=== PATIENT | male | born 1985 | race Hispanic/Latino ===

== ENCOUNTER 2020-12-10 00:05 | Emergency (ER) | payer SELFPAY ==
--- NOTE | 2020-12-10 00:50 | Event Note ---
ED Screening Note Date of service: 12/10/20 Time: 00:49 ED Screening Note: Patient here from [place] with chest pain Detoxing from meth for the past 2 days Dates pain started after he was seen at [place] earlier and had to shots of an unknown medication Denies shortness of breath This initial assessment/diagnostic orders/clinical plan/treatment(s) is/are subject to change based on patients health status, clinical progression and re- assessment by fellow clinical providers in the ED. Further treatment and workup at subsequent clinical providers discretion. Patient/guardian urged not to elope from the ED as their condition may be serious if not clinically assessed and managed. Initial orders include: Labs EKG Chest x-ray
[2020-12-10 01:14] LABS: Basophils # (Auto) 0.1 K/mm3 (0.0-0.1); Basophils % (Auto) 0.5 % (0.0-1.8); Eosinophils # (Auto) 0.2 K/mm3 (0.0-0.4); Eosinophils % (Auto) 1.8 % (0.0-4.3); Hematocrit 41.7 % (35.5-45.6); Hemoglobin 14.4 gm/dl (11.8-15.2); Lymphocytes # (Auto) 3.1 K/mm3 (1.2-5.4); Lymphocytes % (Auto) 31.2 % (13.4-35.0); Mean Corpuscular HGB Conc 35 % (32-34); Mean Corpuscular Volume 85 fl (84-94); Monocytes # (Auto) 0.8 K/mm3 (0.0-0.8); Platelet Count 278 K/mm3 (140-440); Red Blood Count 4.92 M/mm3 (3.65-5.03); Red Cell Distribution Width 15.5 % (13.2-15.2)
[2020-12-10 01:27] LABS: Alanine Aminotransferase 43 units/L (7-56); Albumin 4.7 g/dL (3.9-5); BUN/Creatinine Ratio 11; Blood Urea Nitrogen 10 mg/dL (9-20); Hemolysis Index 5
--- NOTE | 2020-12-10 01:41 | XRay Report ---
CHEST 1 VIEW 12/10/2020 12:59 AM INDICATION / CLINICAL INFORMATION: chest pain. COMPARISON: 02/22/2020. FINDINGS: SUPPORT DEVICES: None. HEART / MEDIASTINUM: No significant abnormality. LUNGS / PLEURA: No significant pulmonary or pleural abnormality. No pneumothorax. ADDITIONAL FINDINGS: No significant additional findings. IMPRESSION: No acute abnormality. Signer Name: John Grossman MD Signed: 12/10/2020 1:36 AM Workstation Name: [id number]
--- NOTE | 2020-12-10 02:56 | Emergency Department Report ---
ED Chest Pain HPI - General Chief Complaint: Chest Pain Stated Complaint: CHEST PAIN Time Seen by Provider: 12/10/20 02:47 Source: patient Mode of arrival: Wheelchair Limitations: No Limitations - History of Present Illness Initial Comments: Chief complaint: "I am paranoid and I'm seeing things." HPI: This is a 35-year-old male with history of polysubstance abuse including heroin and methamphetamine who presents on 1012 for suicidal ideation from [facility]. Patient had transient chest pain. He felt as if he was punched in the chest after receiving IM injection at outside hospital. He denies any chest pain at this time. He says that "I am seeing [s--]. I feel like you are trying to do something to me." MD Complaint: chest pain -: Sudden, This evening Onset: during rest Pain Location: substernal Severity: moderate Severity scale (0 -10): 0 Quality: other ([place] like a punch in the chest) Consistency: now resolved Improves With: nothing Worsens With: nothing Treatments Prior to Arrival: other (Patient was transferred from [facility] to [facility]) - Related Data Allergies Allergy/AdvReac Type Severity Reaction Status Date / Time No Known Allergies Allergy Verified 12/10/20 00:35 Heart Score - HEART Score History: Slightly suspicious EKG: Normal Age: < 45 Risk factors: No known risk factors Troponin: < normal limit HEART Score: 0 ED Review of Systems ROS: Stated complaint: CHEST PAIN Other details as noted in HPI Comment: All other systems reviewed and negative Constitutional: denies: fever, malaise Respiratory: denies: cough, shortness of breath Gastrointestinal: denies: abdominal pain, nausea, vomiting Psychiatric: anxiety, depression, auditory hallucinations ED Past Medical Hx - Past Medical History Previous Medical History?: Yes Hx Seizures: Yes Hx Psychiatric Treatment: Yes (substance abuse) - Surgical History Past Surgical History?: No - Social History Smoking Status: Current Every Day Smoker Substance Use Type: Heroin, Methamphetamines ED Physical Exam - General Limitations: No Limitations General appearance: alert, in no apparent distress, other (Appears restless, paranoid, attending to persons not in the room) - Head Head exam: Present: atraumatic, normocephalic - Eye Eye exam: Present: normal appearance - ENT ENT exam: Present: mucous membranes moist - Neck Neck exam: Present: normal inspection, full ROM - Respiratory Respiratory exam: Present: normal lung sounds bilaterally. Absent: respiratory distress, wheezes, rales, rhonchi - Cardiovascular Cardiovascular Exam: Present: regular rate, normal rhythm, normal heart sounds. Absent: systolic murmur, diastolic murmur, rubs, gallop - GI/Abdominal GI/Abdominal exam: Present: soft, normal bowel sounds. Absent: distended, tend erness, guarding, rebound - Rectal Rectal exam: Present: deferred - Extremities Exam Extremities exam: Present: normal inspection - Back Exam Back exam: Present: normal inspection - Neurological Exam Neurological exam: Present: alert, oriented X3 - Psychiatric Psychiatric exam: Present: agitated, anxious, other (Paranoid) - Skin Skin exam: Present: warm, dry, intact, normal color. Absent: rash ED Course Vital Signs 12/10/20 12/10/20 00:37 02:13 Temperature 98.1 F Pulse Rate 111 H Respiratory 18 18 Rate Blood Pressure 141/96 O2 Sat by Pulse 100 Oximetry ED Medical Decision Making - Lab Data Result diagrams: 12/10/20 00:52 12/10/20 00:52 Laboratory Results - last 24 hr 12/10/20 12/10/20 00:52 00:52 WBC 9.8 RBC 4.92 Hgb 14.4 Hct 41.7 MCV 85 MCH 29 MCHC 35 H RDW 15.5 H Plt Count 278 Lymph % (Auto) 31.2 Grant % (Auto) 8.0 H Eos % (Auto) 1.8 Baso % (Auto) 0.5 Lymph # (Auto) 3.1 Grant # (Auto) 0.8 Eos # (Auto) 0.2 Baso # (Auto) 0.1 Seg Neutrophils % 58.5 Seg Neutrophils # 5.7 Sodium 138 Potassium 4.2 Chloride 98.0 Carbon Dioxide 31 H Anion Gap 13 BUN 10 Creatinine 0.9 Estimated GFR > 60 BUN/Creatinine Ratio 11 Glucose 94 Calcium 10.0 Total Bilirubin 0.60 AST 38 ALT 43 Alkaline Phosphatase 76 Troponin T < 0.010 Total Protein 8.1 Albumin 4.7 Albumin/Globulin Ratio 1.4 - EKG Data -: EKG Interpreted by [facility] EKG shows normal: sinus rhythm, axis, intervals, QRS complexes, ST-T waves Rate: normal - EKG Data Interpretation: normal EKG 12/10/20 02:54 EKG obtained 45 EKG interpreted by me Normal sinus rhythm normal rate normal axis normal intervals no ST elevation no ST-T signs of ischemia normal EKG - Radiology Data Radiology results: report reviewed Chest radiograph no acute findings according to radiology impression - Medical Decision Making 1. Chest pain: I suspect his ectopy after receiving IM injection outside hospital. No evidence of emergent cause of chest pain such as pulmonary embolism, ACS, pneumothorax, pneumonia. Patient's work-up all normal including chest radiograph EKG troponin CBC chemistry 2. Drug-induced psychosis with suicidal ideation: Patient is currently on involuntary hold. He is being treated at [facility]. Sitter is at the bedside. Patient will be transported back to [facility]. Critical care attestation.: If time is entered above; I have spent that time in minutes in the direct care of this critically ill patient, excluding procedure time. ED Disposition Clinical Impression: Drug-induced psychotic disorder, Suicidal ideation, Chest pain Disposition: [id number]/TX-[id number] ANOTHER TYPE HLTHCARE Is pt being admited?: No Does the pt Need Aspirin: No Condition: Stable Instructions: Chest Pain (ED)
[2020-12-10 03:27] VITALS: BP 136/89
== END 2020-12-10 03:30 | disposition other institution (70) ==
LOC: ED 00:05
DX: F19.951 Other psychoactive substance use, unspecified with psychoactive substance-induced psychotic disorder with hallucinations (principal); R07.89 Other chest pain; G40.909 Epilepsy, unspecified, not intractable, without status epilepticus; F17.200 Nicotine dependence, unspecified, uncomplicated; F12.10 Cannabis abuse, uncomplicated; Z79.899 Other long term (current) drug therapy
CPT/HCPCS: 36415; 71045; 80053; 84484; 85025; 93005